=== PATIENT | female | born 1935 | race Caucasian/White ===

== ENCOUNTER 2016-12-25 05:37 | Inpatient (IN) | payer OTHER ==
--- NOTE | 2016-12-24 16:43 | GHP ---
[f rep st] PREOP HISTORY AND PHYSICAL DATE OF ADMISSION: 12/25/2016 HISTORY: The patient is a pleasant 81-year-old woman, who has undergone 2 prior lumbar surgeries. The 1st was about 5 years ago in the form of an L3-L5 laminectomy. She mentions it was complicated by a spinal fluid leakage, but overall she did well. Then on September 25 of this year, she underwent a right-sided L4-5 laminectomy as a revision surgery by the same surgeon. Unfortunately, the patient states that her symptoms did not improve and she feels worsening of her right lower extremity pain as well as new left buttock pain and new left new bilateral anterior thigh pain. She also has bilateral foot numbness and peripheral neuropathy. On a 1-10 visual analog scale, her typical pain is a 4- 8. Her pain is clearly worsened with ambulation and better with sitting. Treatments have included epidural steroid injection postoperatively, Medrol Dosepak, and physical therapy. SOCIAL HISTORY: Negative for tobacco. She quit smoking in 1971. She denies use of alcohol. FAMILY HISTORY: Cancer. PAST MEDICAL HISTORY: Hypothyroidism, hypercholesterolemia, breast cancer, osteoarthritis, bilateral peripheral neuropathy and irritable bowel syndrome. PAST SURGICAL HISTORY: Double mastectomy, bilateral total knee arthroplasty, bilateral thumb metacarpophalangeal joint arthroplasties, the aforementioned L3- L5 laminectomy and revision right L4-5 laminectomy. ALLERGIES: None. MEDICATIONS: Thyroxine, sertraline, Vicodin, simvastatin, estradiol, Prilosec, calcium, gabapentin. PHYSICAL EXAM: VITAL SIGNS: Blood pressure is 142/72. GENERAL: The patient is alert and oriented x3. The patient is 5 feet 5 inches tall and weighs 140 pounds. CARDIAC: Reveals regular rate and rhythm without detectable murmur, rub or gallop. LUNGS: Clear to auscultation. She has no wheezing or rhonchi. MUSCULOSKELETAL: Bilateral lower extremities strength is 5/5 throughout. Light touch is diminished in the right medial leg in the L4 distribution. Patellar reflexes are 1/4. Achilles reflexes bilaterally are absent. Straight leg raising is negative x2. BACK: Lumbar spine shows a well-healed midline scar. There is also a new or right paramedian scar as well. Both are healed and showed no signs of infection. Lumbar extension range of motion causes severe bilateral lower extremity pain. On forward flexion her pain goes away. IMAGING: MRI of lumbar spine dated 11/11/2016 shows a mild scoliosis. She has moderate central stenosis at L4-5. Also at L2-3 she has moderate central stenosis. She has had a previous laminectomy from L3-L5. IMPRESSION: 1. Moderate central stenosis L2-3, moderate central stenosis L4-5. 2. Status post L3-L5 laminectomy and revision right L4-5 laminectomy. PLAN: The patient will undergo an L2-3 and L4-5 revision laminectomy. I do not think she needs a fusion at this time, as most of her symptoms are bilateral lower extremity pain rather than low back pain. The patient is in agreement. Potential risks, benefits, possible complications have been thoroughly discussed including, but not limited to, dural tear with CSF leak, meningitis, nerve root injury, partial or complete paralysis, infection, instability, need for further surgery including a fusion, CSF leak, deep venous thrombosis, pulmonary embolus, pneumonia, stroke, heart attack, hemorrhage, blindness, and . The patient will be n.p.o. after midnight tonight. Copy requested to: Presurgery testing /[id number]/MODL MTDD
[2016-12-25] MEDS ORDERED: ceFAZolin 2 GM/DEXTROSE 100 ML IV ONE ×2 (05:51→06:00)
[2016-12-25] MEDS ORDERED: LIDOCAINE 1% 2 ML INJ ONE (05:56)
[2016-12-25] MEDS ORDERED: LR 1,000 ML IV ONE (06:28)
[2016-12-25] MEDS ORDERED: LIDOCAINE 1% 2 ML INJ ID PRN (06:28)
[2016-12-25] MEDS ORDERED: BACITRACIN 50,000 UNITS/10 ML SYR IRR ONE (06:45)
[2016-12-25] MEDS ORDERED: THROMBIN (BOVINE) 20,000 UNIT VIAL TP ONE (06:46)
[2016-12-25] MEDS ORDERED: BUPIVACAINE 0.25% 30 ML SDV ONE (06:46)
--- NOTE | 2016-12-25 07:08 | PDHPUP ---
History & Physical Update H&P update statement: This history and physical update is based on an assessment of the patient which was completed after admission or registration (within 24 hours), but prior to the surgery/procedure. H&P update: H&P reviewed & patient examined, no change in patient's condition since H&P completed
[2016-12-25] MEDS ORDERED: MIDAZOLAM 2 MG/2 ML VIAL ONE (07:12)
[2016-12-25] MEDS ORDERED: PROPOFOL/EMULSION 500 MG/50 ML BOTTLE IV ONE (07:12)
[2016-12-25] MEDS ORDERED: METOCLOPRAMIDE 10 MG/2 ML VIAL ONE (07:13)
[2016-12-25] MEDS ORDERED: ROCURONIUM 50 MG/5 ML VIAL ONE (07:13)
[2016-12-25] MEDS ORDERED: LIDOCAINE 2% 100 MG/5 ML SYR ONE (07:13)
[2016-12-25] MEDS ORDERED: DEXAMETHASONE 4 MG/ML VIAL ONE ×2 (07:13)
[2016-12-25] MEDS ORDERED: NS 1,000 ML IV SCH (07:30)
[2016-12-25] MEDS ORDERED: diphenhydrAMINE 25 MG CAP PO PRN (07:30)
[2016-12-25] MEDS ORDERED: ONDANSETRON DISINTEGRATING 4 MG TAB PO PRN (07:30)
[2016-12-25] MEDS ORDERED: MAGNESIUM HYDROXIDE 30 ML UDCUP PO PRN (07:30)
[2016-12-25] MEDS ORDERED: LACTULOSE 20 GM/30 ML UDCUP PO PRN (07:30)
[2016-12-25] MEDS ORDERED: BISACODYL 10 MG SUPP PR PRN (07:30)
[2016-12-25] MEDS ORDERED: POLYETHYLENE GLYCOL 3350 17 GM PKT PO PRN (07:30)
[2016-12-25] MEDS ORDERED: ONDANSETRON 4 MG/2 ML VIAL IVP PRN ×2 (07:30→10:23)
--- NOTE | 2016-12-25 08:34 | PDANEPAE ---
ANE Past Medical History - Cardiovascular History Hx Hypertension: No Hx Arrhythmias: No Hx Chest Pain: No Hx Coronary Artery / Peripheral Vascular Disease: No Hx CHF / Valvular Disease: No Hx Palpitations: No - Pulmonary History Hx COPD: No Hx Asthma/Reactive Airway Disease: No Hx Recent Upper Respiratory Infection: No Hx Oxygen in Use at Home: No Hx Sleep Apnea: No Sleep Apnea Screening Result - Last Documented: Negative - Neurologic History Hx Cerebrovascular Accident: No Hx Seizures: No Hx Dementia: No - Endocrine History Hx Diabetes: Yes Endocrine History Comment: PARTIAL THYROIDECTOMY - Renal History Hx Renal Disorders: No Renal History Comment: STRESS INCONT - Liver History Hx Hepatic Disorders: No Hepatic History Comment: CHOLECYSTECTOMY - Neurological & Psychiatric Hx Hx Neurological and Psychiatric Disorders: No - Cancer History Hx Cancer: No - Congenital Disorder History Hx Congenital Disorders: No - GI History Hx Gastrointestinal Disorders: Yes Gastrointestinal History Comment: IBS. ACID REFLUX - Other Health History Other Health History: NEG - Chronic Pain History Chronic Pain: Yes (BACK PAIN, LEGS) - Surgical History Prior Surgeries: LAMINECTOMY X2. ROSEANN MASTECTOMY. THUMB JOINTS ROSEANN. L CARPAL TUNNEL. ROSEANN TKA. HYSTERECTOMY. CHOLECYSTECTOMY. PARTIAL THYROIDECTOMY ANE Review of Systems - Exercise capacity METS (RN): 4 METS ANE Patient History - Allergies Allergies/Adverse Reactions: No Allergies [NKDA] Allergy (Verified 12/18/16 10:22) - Home Medications Home Medications: C/E/Zn/Cu/OM3/DHA/EPA/LUT/ZEAX [Preservision Areds 2 Softgel] 1 each PO BID [Last Taken 12/24/16] Gabapentin [Neurontin 100 MG (*)] 300 mg PO BID 12/23/16 [Last Taken 12/25/16 05 :00] Herbals/Supplements -Info Only 1 ea PO DAILY 12/23/16 [Last Taken 12/24/16] Hyoscyamine Sulfate [Levsin, Hyomax-Sl 0.125 mg (*)] 0.125 mg PO QID 12/23/16 [ Last Taken 12/25/16 05:00] Levothyroxine [Synthroid 88 mcg (*)] 88 mcg PO DAILY 12/23/16 [Last Taken Unknown] Omeprazole [Prilosec 20 mg] 20 mg PO DAILY 12/23/16 [Last Taken 12/25/16 05:00] Sertraline HCl [Zoloft 50mg (*)] 100 mg PO HS 12/23/16 [Last Taken 12/24/16] Simvastatin [Zocor] 40 mg PO HS 12/23/16 [Last Taken 12/24/16] oxyCODONE HCL/ACETAMINOPHEN [Percocet 10-325 mg Tablet] 1 each PO DAILY PRN [Last Taken 12/18/16] - NPO status NPO Since - Liquids (Date): 12/25/16 NPO Since - Liquids (Time): 05:00 NPO Since - Solids (Date): 12/24/16 NPO Since - Solids (Time): 20:00 - Smoking Hx Smoking Status: Former smoker - Family Anes Hx Family Hx Anesthesia Complications: NEG ANE Labs/Vital Signs - Vital Signs Blood Pressure: 156/71 Heart Rate: 71 Respiratory Rate: 18 O2 Sat (%): 96 Height: 165.1 cm Weight: 63.503 kg ANE Physical Exam - Airway Mallampati Score: Class 2 Mouth exam: normal dental/mouth exam - Pulmonary Pulmonary: no respiratory distress - Cardiovascular Cardiovascular: regular rate and rhythym - ASA Status ASA Status: II ANE Anesthesia Plan Anesthesia Plan: general endotracheal anesthesia Urgent/Emergent Case: Twila gardner completed preop but documented later for safe timely pt care
[2016-12-25] MEDS ORDERED: PANTOPRAZOLE SODIUM 40 MG TAB PO SCH (09:00)
[2016-12-25] MEDS ORDERED: SUGAMMADEX SODIUM 200 MG/2 ML VIAL IVP ONE (09:53)
--- NOTE | 2016-12-25 10:16 | POSTOPPROG ---
Post Op Note Date of Operation: 12/25/16 Surgeon: Kenyetta Anthony Data Modeler: Bonifacio Clements SA Anesthesiologist: Dandre Faria MD Anesthesia: GET(General Endotracheal) Pre-op Diagnosis: Moderate stenosis L2-3, and L4-5 Post-op Diagnosis: same Indication: Bilat Lower extremity pain Procedure: Revision L2-3 and L4-5 laminectomies Findings: moderate stenosis L2-3, severe at L4-5 Inf/Abcess present in the surg proc area at time of surgery?: No Depth: Deep Incisional (Fascial) EBL: 75 cc Complications: none Drains: Alexey Lopez
[2016-12-25] MEDS ORDERED: ALBUTEROL 3 ML DEYVIAL IH PRN (10:23)
[2016-12-25] MEDS ORDERED: NALOXONE HCL 0.4 MG/ML INJ IVP PRN (10:23)
[2016-12-25] MEDS ORDERED: LR 500 ML IV PRN (10:23)
--- NOTE | 2016-12-25 10:23 | POSTANESTH ---
Post Anesthetic Evaluation Cardiovascular Status: Normal, Stable Respiratory Status: Normal, Stable Level of Consciousness/Mental Status: Can Participate in Eval Pain Control: Adequate, Prn Tx Ordered Nausea/Vomiting Control: Adequate, Prn Tx Ordered Complications Possibly Related to Anesthesia: None Noted
[2016-12-25] MEDS: fentaNYL 100 MCG/2 ML INJ IVP PRN ×2 (10:35→10:46)
[2016-12-25] MEDS ORDERED: fentaNYL 100 MCG/2 ML INJ ONE (10:39)
[2016-12-25] MEDS: FAMOTIDINE 20 MG TAB PO SCH ×2 (10:58→20:36)
[2016-12-25] MEDS: morphINE SR 15 MG TAB PO SCH ×2 (10:58→20:36)
[2016-12-25] MEDS: PRESERVISION AREDS2 FORMULA EYE VIT 1 EACH PO SCH ×2 (10:58→20:36)
[2016-12-25] MEDS: GABAPENTIN 100 MG CAP PO SCH ×2 (10:58→20:35)
[2016-12-25] MEDS: LEVOTHYROXINE 88 MCG TAB PO SCH (10:58)
[2016-12-25] MEDS: SENNOSIDES/DOCUSATE SODIUM TAB PO SCH ×2 (10:59→20:35)
[2016-12-25] MEDS: HYOSCYAMINE SULFATE 0.125 MG TAB PO SCH ×3 (11:39→20:34)
[2016-12-25] MEDS: oxyCODONE IR 5 MG TAB PO PRN ×3 (11:40→22:00)
[2016-12-25] MEDS: DIAZEPAM 5 MG TAB PO PRN (11:40)
[2016-12-25] MEDS: ceFAZolin 2 GM/DEXTROSE 100 ML IV SCH ×2 (13:29→21:59)
[2016-12-25] MEDS: ACETAMINOPHEN 500 MG TAB PO SCH ×2 (13:30→22:00)
--- NOTE | 2016-12-25 14:16 | GOP ---
[f rep st] OPERATIVE REPORT DATE OF OPERATION: 12/25/2016 SURGEON: Kenyetta Saldivar MD TIRE AND LUBE TECHNICIAN: Tenzin Clements SA. ANESTHESIA: General endotracheal intubation. ANESTHESIOLOGIST: Dr. Hector Faria. PREOPERATIVE DIAGNOSIS: 1. Status post two prior lumbar surgeries, L3 to L5 laminectomy and a revision right L4-5 laminecto my. 2. Recurrent stenosis at L4-5. 3. Moderate stenosis at L2-3. 4. Neurogenic claudication, bilateral lower extremities. POSTOPERATIVE DIAGNOSIS: 1. Status post two prior lumbar surgeries, L3 to L5 laminectomy and a revision right L4-5 laminecto my. 2. Recurrent stenosis at L4-5. 3. Moderate stenosis at L2-3. 4. Neurogenic claudication, bilateral lower extremities. PROCEDURE PERFORMED: L2-L3 laminectomy and foraminotomies, and revision L4-5 laminectomy and forami notomies. FINDINGS: 1. Profound restenosis at L4-5, centrally and bilateral foraminal. 2. Moderate L2-L3 stenosis. ESTIMATED BLOOD LOSS: 75 cc. INDICATIONS: The patient is a pleasant 81-year-old woman who, five years ago, underwent an L3 to L5 laminectomy by another surgeon. She did have a spinal fluid leakage but overall did very well, and her preoperative leg pain was relieved. Then, on September 25 of this year, she underwent what appears to be a right-sided L4-5 hemilaminectomy revision surgery by her same surgeon. However, she did no t get any significant relief and is having worsening right lower extremity pain, new left buttock pa in, and new anterior thigh pain bilaterally. She has tried a Medrol Dosepak, as well as an epidural steroid injection postoperatively. Her symptoms are worse with ambulation and improved with sittin g down, which matches the neurogenic claudication diagnosis. She has elected to undergo more surger y. I did not recommend a fusion. There were no guarantees given in regard to surgical outcome. Po tential risks, benefits, possible complications were thoroughly discussed including, but not limited to, dural tear with CSF leak, meningitis, nerve root injury, partial or complete paralysis, infecti on, need for further surgery including a fusion, lack of improvement in symptomatology, foot drop, n erve injury, DVT, PE, pneumonia, stroke, heart attack, hemorrhage, blindness, and . DESCRIPTION OF PROCEDURE: After obtaining both written and verbal consent from the patient, she was brought to the operating room, where she underwent a general endotracheal intubation. The patient received 2 g of IV Ancef. A Nava catheter was placed. The patient was rolled to the prone positio n on the Alexey table. All 4 extremities were padded well. The face and eyes were padded per the anesthesiologist. A lateral fluoroscopic x-ray was obtained, using a metallic marker for localizati on. The localization needle was at L4-5. The lumbar spine was prepped and draped in the normal racheal rile fashion. A midline longitudinal incision was made through the previous scar, midline dorsally from L2 to L5. Self-retaining retractors were placed. An intraoperative x-ray was obtained for loc alization, using a metallic marker at the lowest spinous process, which was L2. The remainder of th em had been removed previously. The x-ray did confirm the metallic marker to be at L2 spinous proce ss. Then under loupe magnification, a rongeur was used to remove the base of the spinous process of L2. In addition, a 5 mm round bur was used to decorticate the spinous process. A 2-0 curved curet te was used to create a plane between the ligamentum flavum and the epidural space at L2-3. There w as moderate central stenosis and moderate bilateral, left greater than right, foraminal stenosis. A Parmer and a [place] 4 were used to gently free up adhesions, and there was moderate central sten osis identified. Undercutting was performed but nonetheless, the right L2-3 facet joint was disrupt ed and the inferior L2 articular process was removed. Foraminotomies were performed bilaterally. T his was done with a 2 and a 3 mm Kerrison while taking care to protect the dura and the exiting nerv e roots. It should be mentioned that intraoperative somatosensory-evoked potentials, motor-evoked p otentials, and EMGs were being performed. The midline thecal canal was moderately stenosed, mainly due to ligamentum flavum hypertrophy, which was gradually freed up and removed, mainly with a 3 mm K errison. Then our attention was directed distally. Another intraoperative x-ray confirmed localiza tion at the L4-5 level, which was a revision level. Under the microscope, a rongeur was used to rem ove abundant epidural fibrosis, and a central trough was made. A 2-0 curved curette was used to cre ate a plane between the ligamentum flavum and the epidural space centrally at L4-5. There was profo und stenosis identified, mainly due to ligamentum flavum hypertrophy and facet arthropathy with bony overgrowth. A 1.5 and 2 mm Kerrison were used to gradually increase the size of the revision deja ectomy, and care was taken to protect the cauda equina and the exiting nerve roots at all times. Fo raminotomies were performed. The right-sided L4-5 foraminotomy was very difficult, due to abundant scar tissue, but was moderately decompressed. A Parmer was used to palpate proximal and distal, th ere was no central stenosis. Irrigation was performed. Hemostasis was obtained with bipolar cauter y and thrombin-soaked Gelfoam, as well as bone wax. Again, the Parmer was used to palpate proximal , distal, left and right, and it was fully decompressed. The dura was in good condition without any evidence of tear. Thorough irrigation using bacitracin mixed with normal saline was performed, and the 2 areas of decompression were inspected. There was no evidence of spinal fluid leakage. No ev idence of infection. A 10 flat AMADO drain was placed deep to the fascial layer and sewn into the skin with a 2-0 nylon. Then, a #1 Vicryl was used to close the deep fascial layer, followed by an 0 Gabriel ryl, and skin lakeshia. 20 cc of 0.25% Marcaine without epinephrine was infiltrated into the subcuta neous tissues for additional postoperative pain control. Sterile dressing was applied. An AP x-ray of the lumbar spine was obtained, and this confirmed that the L2-3 and the L4-5 laminectomies had b een performed at the correct levels. The x-ray machine was removed. Sterile dressing was applied t o the lumbar wound. Lumbar [id number] corset was placed. Patient was rolled to the supine posit ion. She was extubated in operating room and brought to the recovery room in satisfactory condition . Nava catheter had been removed. There were no changes in spinal cord monitoring, including SSEP s, motor-evoked potentials, and EMGs. DRAINS: One 10 flat AMADO drain placed. ANTIBIOTICS GIVEN: 2 g of Ancef IV without difficulty or complication. POSTOPERATIVE PLAN: Close neurologic observation, close airway observation, PT/OT, and pain control . /[id number]/MODL
--- NOTE | 2016-12-25 17:17 | ASMTCMCOM ---
CM Note CM Note Notes: Received call back from Patti at [facility]. Patient has "member " days available for SNF and states that they will have a bed available for patient if she is discharged with any skilled/rehab needs. I have contacted patient's son Fahad and he is aware of how to reach Patti for further discussion I also spoke with Fahad about the DUQUE form re patient's admission under "observation" status and how this related to Medicare billing and copays. He verbalizes understanding. NISHANT continues to follow with D/C planning prn Date Signed: 12/25/2016 05:16 PM Electronically Signed By:Marybeth Block
--- NOTE | 2016-12-25 17:27 | ASMTCMCOM ---
CM Note CM Note Notes: PLEASE NOTE: LAST CM NOTE AT 1716 WAS WRITTEN ON THE WRONG PATIENT. PLEASE DISREGARD Date Signed: 12/25/2016 05:26 PM Electronically Signed By:Marybeth Block
[2016-12-25 18:41] LABS: % IMMATURE GRANULYOCYTES 0.5 % (0.0-1.1); ABSOLUTE IMMATURE GRANULOCYTES 0.05 10^3/uL (0.00-0.10); ADD DIFF? NO; ADD MORPH? NO; ADD SCAN? NO; ATYPICAL LYMPHOCYTE FLAG 0 (0-99); FRAGMENT RBC FLAG 0 (0-99); HEMATOCRIT 35.2 % (38.0-47.0); HEMOGLOBIN 11.5 g/dL (12.6-16.3); LEFT SHIFT FLG 0 (0-99); LIPEMIA HEMOLYSIS FLAG 80 (0-99); MEAN CELL HEMOGLOBIN CONCENTR. 32.7 g/dL (32.4-36.7); MEAN CELL VOLUME 88.9 fL (81.5-99.8); MEAN PLATELET VOLUME 10.3 fL (8.7-11.7); PLATELET CLUMPS FLAG 0 (0-99); PLATELET COUNT 190 10^3/uL (150-400); RED BLOOD CELL COUNT 3.96 10^6/uL (4.18-5.33)
[2016-12-25 18:50] LABS: INR 1.02 (0.83-1.16); PROTIME(PATIENT) 13.3 SEC (12.0-15.0)
[2016-12-25 18:51] LABS: APTT 30.9 SEC (23.0-38.0)
[2016-12-25 19:33] LABS: ANION GAP 8 mEq/L (8-16); CALCIUM 8.9 mg/dL (8.5-10.4); CARBON DIOXIDE 23 mEq/l (22-31); CHLORIDE 106 mEq/L (97-110); CREATININE 0.7 mg/dL (0.6-1.0); GLOMERULAR FILTRATION RATE > 60; GLUCOSE 133 mg/dL (70-100); POTASSIUM 4.2 mEq/L (3.5-5.2); SODIUM 137 mEq/L (134-144)
[2016-12-25] MEDS: SERTRALINE HCL 50 MG TAB PO SCH (20:35)
[2016-12-25] MEDS: ATORVASTATIN CALCIUM 20 MG TAB PO SCH (20:36)
[2016-12-25] MEDS: METHOCARBAMOL 750 MG TAB PO PRN (20:36)
[2016-12-25] MEDS ORDERED: NON-FORMULARY NEW DRUG (Simvastatin [Zocor] 40 MG) PO SCH (21:00)
[2016-12-26] MEDS: DIAZEPAM 5 MG TAB PO PRN ×2 (01:26→21:11)
[2016-12-26] MEDS: ceFAZolin 2 GM/DEXTROSE 100 ML IV SCH ×3 (05:10→21:13)
[2016-12-26] MEDS: HYOSCYAMINE SULFATE 0.125 MG TAB PO SCH ×4 (05:11→21:10)
[2016-12-26] MEDS: oxyCODONE IR 5 MG TAB PO PRN ×3 (05:11→14:45)
[2016-12-26] MEDS: ACETAMINOPHEN 500 MG TAB PO SCH ×3 (05:11→21:08)
[2016-12-26] MEDS: LEVOTHYROXINE 88 MCG TAB PO SCH (07:44)
[2016-12-26] MEDS: FAMOTIDINE 20 MG TAB PO SCH ×2 (08:04→21:10)
[2016-12-26] MEDS: METHOCARBAMOL 750 MG TAB PO PRN ×2 (09:03→14:46)
[2016-12-26] MEDS: morphINE SR 15 MG TAB PO SCH ×2 (09:03→21:12)
[2016-12-26] MEDS: OMEPRAZOLE PO SCH ×2 (09:04→12:12)
[2016-12-26] MEDS: GABAPENTIN 100 MG CAP PO SCH ×2 (09:27→21:09)
[2016-12-26] MEDS: PRESERVISION AREDS2 FORMULA EYE VIT 1 EACH PO SCH ×2 (09:27→21:11)
[2016-12-26] MEDS: SENNOSIDES/DOCUSATE SODIUM TAB PO SCH ×2 (09:28→21:09)
--- NOTE | 2016-12-26 12:37 | SOAPPROG ---
SOLLOYD Progress Note Assessment/Plan: Assessment: post op day 1 , s/p revision L2-3 and rev. L4-5 lami. Pt doing well, but pain not well controlled. Plan: Cont PT and OT (shower in a.m) Instructed pt to ask for pain meds, rather than expect them. 12/26/16 12:34 p Subjective: Pt states her legs feel much better, but still has some Left groin and buttock pain. Objective: Vital Signs Temp Pulse Resp BP Pulse Ox 36.8 C 67 16 137/59 H 96 12/26/16 11:27 12/26/16 11:27 12/26/16 11:27 12/26/16 11:27 12/26/16 11:27 Laboratory Results 12/25/16 18:31 12/25/16 18:31 12/25/16 12/26/16 12/27/16 05:59 05:59 05:59 Intake Total 2860 Output Total 2590 330 Balance 270 -330 PT 13.3 SEC (12.0-15.0) 12/25/16 18:31 INR 1.02 (0.83-1.16) 12/25/16 18:31 BLE motor 5/5. Danica's negative x 2. Drain functioning properly. ICD10 Worksheet Patient Problems: Problems Problem Status Onset Lumbar stenosis with neurogenic claudication Acute - ICD10 Problem Qualifiers (1) Lumbar stenosis with neurogenic claudication
--- NOTE | 2016-12-26 15:48 | ASMTCASEMG ---
Discharge Plan Comments Coordination Status Comments Notes: PT rec home vs. outpat, OT eval pending. CM to follow for d/c needs. Date Signed: 12/26/2016 03:47 PM Electronically Signed By:Yesi Valdivia
[2016-12-26] MEDS: ATORVASTATIN CALCIUM 20 MG TAB PO SCH (21:11)
[2016-12-26] MEDS: SERTRALINE HCL 50 MG TAB PO SCH (21:12)
[2016-12-27] MEDS: OMEPRAZOLE PO SCH ×2 (05:41→08:42)
[2016-12-27] MEDS: HYOSCYAMINE SULFATE 0.125 MG TAB PO SCH ×3 (05:42→11:36)
[2016-12-27] MEDS: ACETAMINOPHEN 500 MG TAB PO SCH (05:42)
[2016-12-27] MEDS: LEVOTHYROXINE 88 MCG TAB PO SCH (05:45)
[2016-12-27 08:28] VITALS: BP 127/61; PULSE 77; RESP 16; TEMP 97.8; O2SAT 94
[2016-12-27] MEDS: PRESERVISION AREDS2 FORMULA EYE VIT 1 EACH PO SCH (08:43)
[2016-12-27] MEDS: FAMOTIDINE 20 MG TAB PO SCH (08:44)
[2016-12-27] MEDS: SENNOSIDES/DOCUSATE SODIUM TAB PO SCH (08:44)
[2016-12-27] MEDS: morphINE SR 15 MG TAB PO SCH (08:44)
[2016-12-27] MEDS: oxyCODONE IR 5 MG TAB PO PRN (08:45)
[2016-12-27] MEDS: GABAPENTIN 100 MG CAP PO SCH (08:52)
--- NOTE | 2016-12-27 12:06 | SOAPPROG ---
SOLLOYD Progress Note Assessment/Plan: Assessment: post op day 1 , s/p revision L2-3 and rev. L4-5 lami. Pt doing well, but pain not well controlled. Plan: Cont PT and OT (shower in a.m) Instructed pt to ask for pain meds, rather than expect them. 12/26/16 12:34 p 12/27/16 12:05 post op day 2, s/p revision L2-3 and L4-5 laminectomy. Pt's pain well controlled. Doing well in PT and OT. Ready for discharge. Subjective: Pt states legs feel really well with walking. Objective: Vital Signs Temp Pulse Resp BP Pulse Ox 36.6 C 77 16 127/61 H 94 12/27/16 08:00 12/27/16 08:00 12/27/16 08:00 12/27/16 08:00 12/27/16 08:00 Laboratory Results 12/25/16 18:31 12/25/16 18:31 12/26/16 12/27/16 12/28/16 05:59 05:59 05:59 Intake Total 2860 300 Output Total 2590 1270 Balance 270 -970 PT 13.3 SEC (12.0-15.0) 12/25/16 18:31 INR 1.02 (0.83-1.16) 12/25/16 18:31 BLE motor 5/5. Neuro intact. Danica's negative x 2. Drain out per nursing/order. ICD10 Worksheet Patient Problems: Problems Problem Status Onset Lumbar stenosis with neurogenic claudication Acute - ICD10 Problem Qualifiers (1) Lumbar stenosis with neurogenic claudication
--- NOTE | 2016-12-27 12:47 | GDS ---
[[facility]] DISCHARGE SUMMARY HOSPITAL COURSE: Patient is a pleasant 81-year-old woman who underwent, by another surgeon about 5 years ago, an L3-L5 laminectomy. She did have a spinal fluid leakage, but did very well overall. Gerard tamez on 09/25/2016, she underwent a right-sided L4-5 hemilaminectomy by her same surgeon but did not have any postoperative improvement. She sought a second opinion. She states that it was difficult for ambulation but felt good sitting. Her pain was predominantly bilateral lower extremity pain inc luding anterior thigh pain as well as tingling and numbness in both feet and some left groin pain an d buttock pain. On MRI she was found have moderate spinal stenosis at L2-3 which she had not had mac rgery at that level prior, and at L4-5 she had moderate to severe restenosis. She elected to underg o surgery. N 12/25/2016, patient underwent a revision surgery with a revision L4-5 laminectomy and a n L2-3 laminectomy. A drain was placed deep to the fascial layer. Intraoperative somatosensory-madiha ked potentials, motor-evoked potentials, and EMGs remained normal. Postoperatively she did very wel l. She was seen in physical therapy and occupational therapy and became independent in ambulation. She noted complete relief of bilateral lower extremity pain and improvement of the tingling and num bness in her feet. The drain was removed per an order from the nurse. The wound was clean, dry and intact. Her strength of bilateral lower extremities remained 5/5 throughout. She was tolerating a regular diet. Pain control was adequate. She has a followup appointment already given to her in a dvance and prescriptions given in advance. Patient will follow up with me in my office in 2 weeks f or wound inspection and removal of lakeshia. She and her have been told to call my office im mediately if they are concerned about any postoperative potential complication or to go to the [facility] emergency room. She needs to wear her back brace at all times except for showers which need to b e done daily with her dressing off. Her will perform a daily dry dressing and no ointment. She was given a prescription for Keflex 500 mg one p.o. three times daily for 3 days which she will complete. She needs to avoid bending, lifting, twisting. She will follow up with me as scheduled. /[id number]/MODL
--- NOTE | 2016-12-27 15:54 | ASDISCHSUM ---
Discharge Information Plan Status:Home with No Needs Medically Cleared to Leave: Discharge Date:12/27/2016 01:39 PM CM D/C Disposition: ADT D/C Disposition:Home, Routine, Self-Care Projected Discharge Date:12/27/2016 01:39 PM Transportation at D/C: Discharge Delay Reason: Follow-Up Date:12/27/2016 01:39 PM Discharge Slot: Final Diagnosis: Placement Information Patient Contact Information Contact Name:ZHEN Relationship: Address:[address] Work Phone: City:[place] [facility] Phone: [facility]/Zip Code:[place] [address] Email: Financial Information Financial Class: Primary Plan Desc:MEDICARE INPATIENT Primary Plan Number:[id number] Secondary Plan Desc:[facility] Secondary Plan Number:[id number] Assessment Information [facility] Progress Note CM Note CM Note Notes: Received call back from Patti at [facility]. Patient has "member " days available for SNF and states that they will have a bed available for patient if she is discharged with any skilled/rehab needs. I have contacted patient's son Fahad and he is aware of how to reach Patti for further discussion I also spoke with Fahad about the DUQUE form re patient's admission under "observation" status and how this related to Medicare billing and copays. He verbalizes understanding. NISHANT continues to follow with D/C planning prn Date Signed: 12/25/2016 05:16 PM Electronically Signed By:Marybeth Block [facility] CM Progress Note CM Note CM Note Notes: PLEASE NOTE: LAST CM NOTE AT 4889 WAS WRITTEN ON THE WRONG PATIENT. PLEASE DISREGARD Date Signed: 12/25/2016 05:26 PM Electronically Signed By:Marybeth Block [facility] Initial CM Assessment Discharge Plan Comments Coordination Status Comments Notes: PT rec home vs. outpat, OT eval pending. CM to follow for d/c needs. Date Signed: 12/26/2016 03:47 PM Electronically Signed By:Yesi Valdivia [facility] CM Progress Note CM Note CM Note Notes: Pt medically stable for d/c, no CM d/c needs identified. therapies clear pt. Date Signed: 12/27/2016 03:53 PM Electronically Signed By:Yesi Valdivia Intervention Information Intervention Type:*DUQUE-Signed Date of Service:12/26/2016 10:27 AM Patient Type:Observation Staff Member:Miley Mix Hours: Discipline: Severity: Comment: Intervention Type:*Occurence 72 Date of Service:12/25/2016 07:31 AM Patient Type:Inpatient Staff Member:Leona Mireles Hours:0.25 Discipline: Severity:1 (0-1 Hours) Comment:Occ 72 for 12/25/2016 as patient disch arged 12/27/2016 12:14 (< 2 MN LOS after lul ent admission status changed from observation to inpatient.
== END 2016-12-27 13:39 | disposition home or self-care (01) | DRG 520 ==
LOC: F3N 05:37 → INTOOBSV 05:37 → F3N 11:15 → OBSVTOIN 12-26 12:50
PROVIDERS: ADMIT Orthopaedic Surgery Orthopaedic Surgery of the Spine; ATTEND Orthopaedic Surgery Orthopaedic Surgery of the Spine
PROC: 00NY0ZZ Release Lumbar Spinal Cord, Open Approach (ICD-10-PCS; principal; 2016-12-25 07:15)
DX: M48.06 Spinal stenosis, lumbar region (principal); E78.00 Pure hypercholesterolemia, unspecified; E03.9 Hypothyroidism, unspecified; K58.9 Irritable bowel syndrome, unspecified; Z85.3 Personal history of malignant neoplasm of breast; Z90.13 Acquired absence of bilateral breasts and nipples; Z96.653 Presence of artificial knee joint, bilateral; Z87.891 Personal history of nicotine dependence
CPT/HCPCS: 97116-GP; 97161-GP; 97165-GO; 97530-GP; 97535-GO; G8978-GP-CJ; G8979-GP-CI; G8980-GP-CI; G8987-GO-CI; G8987-GO-CJ; G8988-GO-CI; G8989-GO-CI; J0690; J1100; J2001; J2250; J2704; J2765; J3010